=== PATIENT | male | born 1970 | race Caucasian/White ===

== ENCOUNTER 2018-12-05 16:10 | Emergency (ER) | payer OTHER ==
[~2018-12-05] VITALS: Ht 182.9 cm; Wt 122.5 kg
[2018-12-05 18:25] VITALS: BP 129/57
[2018-12-05] MEDS ORDERED: IBUPROFEN 800 MG TAB PO ONE (20:45)
== END 2018-12-05 20:57 | disposition home or self-care (01) ==
LOC: ER 16:12
DX: S63.501A Unspecified sprain of right wrist, initial encounter (principal); S00.03XA Contusion of scalp, initial encounter; E78.5 Hyperlipidemia, unspecified; F12.10 Cannabis abuse, uncomplicated; Z88.6 Allergy status to analgesic agent; X58.XXXA Exposure to other specified factors, initial encounter; Y93.89 Activity, other specified; Y92.89 Other specified places as the place of occurrence of the external cause; Y99.8 Other external cause status
CPT/HCPCS: 70450